=== PATIENT | female | born 1960 | race African-American/Black ===

== ENCOUNTER 2018-10-05 11:45 | Emergency (ER) | payer MEDICAID, OTHER ==
[~2018-10-05] VITALS: Ht 165.1 cm; Wt 80.0 kg
[2018-10-05] MEDS ORDERED: BENAZEPRIL 5MG TABLET PO ONE (13:15)
[2018-10-05 13:25] LABS: BASOPHILS % 1.3 % (0.0-2.0); EOSINOPHILS % 0.8 % (0.0-5.0); HEMATOCRIT. 38.4 % (36.0-48.0); LYMPHOCYTES % 35.3 % (20.0-50.0); MEAN CORPUSCULAR HEMOGLOBIN 31.6 pg (28.0-32.0); MEAN CORPUSCULAR VOLUME 93.7 fL (81.0-99.0); MEAN PLATELET VOLUME 8.5 fl (7.4-10.4); MONOCYTES % 6.4 % (2.0-8.0); NEUTROPHILS % 56.2 % (40.0-76.0); PLATELET 281 x1000/uL (130-400); RED CELL DISTRIBUTION WIDTH 14.1 % (11.6-14.6)
[2018-10-05 13:30] LABS: CHLORIDE 105 mEq/L (98-107)
[2018-10-05 14:12] LABS: CLARITY URINE CLEAR (CLEAR); COLOR URINE YELLOW (YELLOW); KETONES URINE NEGATIVE (NEGATIVE); LEUKOCYTE ESTERASE URINE NEGATIVE (NEGATIVE); NITRITE URINE NEGATIVE (NEGATIVE); OCCULT BLOOD URINE 1+ (NEGATIVE); PROTEIN URINE NEGATIVE (NEGATIVE); SPECIFIC GRAVITY URINE 1.015 (1.005-1.030); UROBILINOGEN URINE 0.2 E.U./dL (0.2-1.0)
[2018-10-05 14:17] VITALS: BP 151/91
[2018-10-05 14:29] LABS: *AMPHETAMINES SCREEN URINE NEGATIVE (NEGATIVE); *BENZODIAZEPINES SCREEN URINE NEGATIVE (NEGATIVE); *COCAINE SCREEN URINE NEGATIVE (NEGATIVE); METHADONE URINE SCREEN NEGATIVE (NEGATIVE)
[2018-10-05 14:30] LABS: CANNABINOID URINE SCREEN NEGATIVE (NEGATIVE); OPIATES URINE SCREEN NEGATIVE (NEGATIVE); PHENCYCLIDINE URINE SCREEN NEGATIVE (NEGATIVE)
[2018-10-05 14:32] LABS: *BARBITURATES SCREEN URINE NEGATIVE (NEGATIVE)
[2018-10-05] MEDS ORDERED: VISCOUS LIDOCAINE 2% 15 ML UDC MM ONE (16:00)
== END 2018-10-05 17:50 | disposition home or self-care (01) ==
LOC: ER 11:45
DX: R22.1 Localized swelling, mass and lump, neck (principal); D64.9 Anemia, unspecified; N17.0 Acute kidney failure with tubular necrosis; L02.91 Cutaneous abscess, unspecified; I10 Essential (primary) hypertension; R31.9 Hematuria, unspecified; F17.290 Nicotine dependence, other tobacco product, uncomplicated
CPT/HCPCS: 36415; 70486; 80305; 99284; 99406

== ENCOUNTER 2018-10-07 15:25 | Emergency (ER) | payer OTHER ==
[~2018-10-07] VITALS: Ht 165.1 cm; Wt 77.0 kg
[2018-10-07 15:34] VITALS: BP 140/93
== END 2018-10-07 20:27 | disposition left against medical advice (07) ==
LOC: ER 15:25
DX: M54.2 Cervicalgia (principal); Z53.21 Procedure and treatment not carried out due to patient leaving prior to being seen by health care provider

== ENCOUNTER 2021-10-18 13:33 | Emergency (ER) | payer OTHER ==
[~2021-10-18] VITALS: Ht 165.1 cm; Wt 87.0 kg
[2021-10-18] MEDS ORDERED: KETOROLAC 60MG/2ML VIAL IM ONE (15:30)
[2021-10-18 15:48] VITALS: BP 142/98
[2021-10-18] MEDS ORDERED: NAPR-681 MT (16:32)
[2021-10-18] MEDS ORDERED: T3 PO (16:32)
== END 2021-10-18 17:35 | disposition home or self-care (01) ==
LOC: ER 13:33
DX: M17.11 Unilateral primary osteoarthritis, right knee (principal); I10 Essential (primary) hypertension; Z98.51 Tubal ligation status; Z87.440 Personal history of urinary (tract) infections; Z98.890 Other specified postprocedural states
CPT/HCPCS: 73562; 96372; 99283; J1885